=== PATIENT | female | born 1950 | race Caucasian/White ===

== ENCOUNTER → 2016-08-08 | Outpatient (CLI) | payer OTHER ==
[~2016-08-08] VITALS: Ht 152.4 cm; Wt 64.4 kg
[~2016-08-08] MED LIST: ASCORBIC ACID500 M3 PO; LO-DOSE ASPIRIN81 M2 PO; PRAVASTATIN SOD40 MG PO; TOPROL XL50 MG PO; VITAMIN A8000 UNIT PO; VITAMIN B-12 51 EACH SL; VITAMIN D2000 UNIT PO; VITAMIN E400 UNIT PO; ZESTRIL10 MG PO
== END | disposition home or self-care (01) ==
LOC: AMB 13:52
PROC: 0DJD8ZZ Inspection of Lower Intestinal Tract, Via Natural or Artificial Opening Endoscopic (ICD-10-PCS; principal; 2016-08-08)
DX: Z12.11 Encounter for screening for malignant neoplasm of colon (principal); I49.9 Cardiac arrhythmia, unspecified; E78.5 Hyperlipidemia, unspecified; I34.0 Nonrheumatic mitral (valve) insufficiency; M85.80 Other specified disorders of bone density and structure, unspecified site; Z79.82 Long term (current) use of aspirin; Z88.1 Allergy status to other antibiotic agents; Z88.8 Allergy status to other drugs, medicaments and biological substances
CPT/HCPCS: 93005

== ENCOUNTER 2016-08-09 23:08 | Observation (INO) | payer OTHER ==
[~2016-08-09] VITALS: Ht 157.5 cm; Wt 72.0 kg
[~2016-08-09 23:08] MED LIST changes: -PRAVASTATIN SOD40 MG PO
[2016-08-09 23:58] LABS: EOSINOPHIL (%) 0.6 % (0-5); EOSINOPHIL COUNT 0.1 K/uL (0-0.3); HEMATOCRIT 34.5 % (36.0-46.0); IMMATURE GRANULOCYTE (%) 0.4 % (0.0-0.7); INSTRUMENT ABS NEUTROPHIL CT 4.4 K/uL; LYMPHOCYTE COUNT 2.8 K/uL (1.0-2.8); MCH 28.8 PG (29.0-34.0); MCHC 33.3 G/DL (30.0-36.0); MCV 86.5 FL (83-99); MEAN PLAT.VOLUME 9.1 uM^3 (9.5-12.4); MONOCYTE (%) 7.3 % (3-12); MONOCYTE COUNT 0.6 K/uL (0-0.8); NEUTROPHIL (%) 56.2 % (45-76); NEUTROPHIL COUNT 4.4 K/uL (1.8-6.4); PLATELET COUNT 258 K/uL (156-360); RBC DIS.WIDTH-CV 13.3 % (11.8-14.6); RED BLOOD COUNT 3.99 M/uL (3.80-5.20); WHITE BLOOD COUNT 7.9 K/uL (4.1-10.2)
[2016-08-10 00:08] LABS: CHLORIDE 99 mEq/L (99-109); POTASSIUM 3.7 mEq/L (3.7-5.4); SODIUM 130 mEq/L (136-147)
[2016-08-10 00:10] LABS: GLUCOSE 110 mg/dL (70-99)
[2016-08-10 00:11] LABS: ANION GAP 11 MEQ/L (2-14)
[2016-08-10 00:12] LABS: TOTAL BILIRUBIN 0.4 mg/dL (0.0-1.0)
[2016-08-10 00:14] LABS: ALKALINE PHOSPHATASE 111 IU/L (3-129); GFR ESTIMATE (CALCULATED) > 59 mL/min/
[2016-08-10 00:15] LABS: UREA NITROGEN (BUN) 17 mg/dL (9-23)
[2016-08-10 00:23] LABS: TROP-I INTERPRETATION NEGATIVE; TROPONIN-I 0.01 ng/mL (0.0-0.30)
[2016-08-10] MEDS ORDERED: PRAVASTATIN SOD40 MG PO (01:12)
[2016-08-10 05:57] VITALS: BP 106/54
[2016-08-10 07:21] LABS: TROP-I INTERPRETATION NEGATIVE; TROPONIN-I 0.02 ng/mL (0.0-0.30)
[2016-08-10 07:43] VITALS: BP 110/56
[2016-08-10 11:27] VITALS: BP 89/53
[2016-08-10 13:35] LABS: ANION GAP 6 MEQ/L (2-14); CHLORIDE 106 MEQ/L (99-109); GFR ESTIMATE (CALCULATED) > 59 mL/min/; GLUCOSE 92 mg/dL (70-99); SAMPLE HEMOLYSIS CHECK 0; SAMPLE ICTERIC CHECK 0; SAMPLE LIPEMIA CHECK 0; UREA NITROGEN (BUN) 15 mg/dL (9-23)
[2016-08-10 13:39] LABS: TROP-I INTERPRETATION NEGATIVE; TROPONIN-I 0.02 ng/mL (0.0-0.30)
[2016-08-10 13:51] LABS: POTASSIUM 4.9 MEQ/L (3.7-5.4); SODIUM 137 MEQ/L (136-147)
[2016-08-10 15:34] VITALS: BP 134/57
== END 2016-08-10 18:04 | disposition home or self-care (01) ==
LOC: EME 23:08 → EDOF 08-10 03:58 → 5WEST 08-10 05:50
PROVIDERS: Emergency Medicine; Hospitalist
DX: R07.89 Other chest pain (principal); R42 Dizziness and giddiness; M25.512 Pain in left shoulder; I25.5 Ischemic cardiomyopathy; I10 Essential (primary) hypertension; E78.5 Hyperlipidemia, unspecified; I49.3 Ventricular premature depolarization; I47.2 Ventricular tachycardia
CPT/HCPCS: 71020; 80048; 80053; 83880; 84484; 85025; 85379; 93005; 99281; 99284; G0378; J1650; J7030